=== PATIENT | male | born 1950 | race Caucasian/White ===

== ENCOUNTER → 2023-08-21 10:35 | Outpatient (BNVA) | payer MEDICARE, OTHER, SELFPAY | PROVIDERS: PCP Family Medicine; Referring Provider Family Medicine; Visit Provider Physician Assistant Surgical | DX: J84.9 Interstitial pulmonary disease, unspecified (principal); J45.909 Unspecified asthma, uncomplicated; J96.11 Chronic respiratory failure with hypoxia; G47.33 Obstructive sleep apnea (adult) (pediatric) | CPT/HCPCS: 36415; 99205; G2212 ==

== ENCOUNTER 2023-08-21 12:29 | Outpatient (REF) | payer MEDICARE, OTHER, SELFPAY ==
[2023-08-22 18:38] LABS: Myeloperoxidase Ab IgG <0.2 U; Proteinase 3 Ab (PR3) <0.2 U
== END 2023-08-21 12:30 | disposition home or self-care (01) ==
LOC: LBN 12:29
PROVIDERS: PCP Family Medicine; Visit Provider Physician Assistant Surgical
DX: J84.9 Interstitial pulmonary disease, unspecified (principal)
CPT/HCPCS: 83516

== ENCOUNTER → 2023-09-23 07:48 | Outpatient (BNVA) | payer MEDICARE, OTHER, SELFPAY | PROVIDERS: PCP Family Medicine; Referring Provider Family Medicine; Visit Provider Physician Assistant Surgical | DX: J84.9 Interstitial pulmonary disease, unspecified (principal); J96.11 Chronic respiratory failure with hypoxia; J45.909 Unspecified asthma, uncomplicated; G47.33 Obstructive sleep apnea (adult) (pediatric) | CPT/HCPCS: 36415; 99215; G2212 ==

== ENCOUNTER 2023-09-23 19:26 | Outpatient (REF) | payer MEDICARE, OTHER, SELFPAY ==
[2023-09-23 16:26] LABS: Abs Immature Grans 0.02 10^3/uL (0.0-0.06); Absolute Basophil Count 0.07 10^3/uL (0.0-0.2); Absolute Eosinophil Count 0.12 10^3/uL (0.0-0.7); Absolute Lymphocyte Count 2.61 10^3/uL (1.2-3.4); Absolute Monocyte Count 0.65 10^3/uL (0.1-0.8); Absolute Neutrophil Count 6.03 10^3/uL (1.2-6.7); Basophils % 0.7 %; Eosinophils % 1.3 %; HCT 48.2 % (40.0-50.0); HGB 15.9 g/dL (13.5-17.5); Immature Grans % 0.2 %; Lymphocytes % 27.5 %; MCH 32.9 pg (27.0-33.0); MCV 100 fL (80-95); Monocytes % 6.8 %; Neutrophils % 63.5 %; Platelet Count 294 10^3/uL (130-400); RBC 4.84 10^6/uL (4.36-5.78); RDW 14.4 % (11.8-14.1); RDW-SD 52.4 fL
[2023-09-23 16:36] LABS: Prothrombin Time 10.2 sec (9.1-11.1)
[2023-09-23 16:50] LABS: ALT 36 U/L (16-63); AST 23 U/L (15-37); Albumin 3.8 g/dL (3.4-5.0); Alkaline Phosphatase 121 U/L (46-116); Anion Gap 9.8 mmol/L (3-11); BUN 13 mg/dL (7-18); Bilirubin, Total 0.47 mg/dL (0.2-1.0); CO2 25.2 mmol/L (21.0-32.0); Calcium 9.3 mg/dL (8.5-10.1); Chloride 105 mmol/L (98-107); Estimated GFR 79.97 (mL/min/1.73m2); Glucose 93 mg/dL (74-106); Potassium 4.3 mmol/L (3.5-5.1); Sodium 140 mmol/L (136-145); Total Protein 7.6 g/dL (6.4-8.2)
== END 2023-09-23 19:27 | disposition home or self-care (01) ==
LOC: LBN 19:26
PROVIDERS: PCP Family Medicine; Visit Provider Physician Assistant Surgical
DX: J96.11 Chronic respiratory failure with hypoxia (principal); J45.909 Unspecified asthma, uncomplicated; J84.9 Interstitial pulmonary disease, unspecified
CPT/HCPCS: 80053; 85025; 85610

== ENCOUNTER → 2023-11-26 08:44 | Outpatient (BNVA) | payer MEDICARE, OTHER, SELFPAY | PROVIDERS: PCP Family Medicine; Referring Provider Family Medicine; Visit Provider Physician Assistant Surgical | DX: J84.9 Interstitial pulmonary disease, unspecified (principal); G47.33 Obstructive sleep apnea (adult) (pediatric); J96.11 Chronic respiratory failure with hypoxia; J45.909 Unspecified asthma, uncomplicated | CPT/HCPCS: 36415; 99214 ==

== ENCOUNTER 2023-11-26 20:14 | Outpatient (REF) | payer MEDICARE, OTHER, SELFPAY ==
[2023-11-26 11:42] LABS: Abs Immature Grans 0.03 10^3/uL (0.0-0.06); Absolute Basophil Count 0.07 10^3/uL (0.0-0.2); Absolute Lymphocyte Count 2.21 10^3/uL (1.2-3.4); Absolute Monocyte Count 0.68 10^3/uL (0.1-0.8); Absolute Neutrophil Count 6.34 10^3/uL (1.2-6.7); Basophils % 0.7 %; Eosinophils % 4.1 %; HCT 48.3 % (40.0-50.0); HGB 16.1 g/dL (13.5-17.5); Immature Grans % 0.3 %; Lymphocytes % 22.7 %; MCH 33.1 pg (27.0-33.0); MCHC 33.3 % (32.0-36.0); MCV 99 fL (80-95); MPV 8.8 fL (8.0-11.0); Neutrophils % 65.2 %; Platelet Count 295 10^3/uL (130-400); RBC 4.87 10^6/uL (4.36-5.78); RDW 13.8 % (11.8-14.1); RDW-SD 50.5 fL; WBC 9.73 10^3/uL (4.4-10.8)
[2023-11-26 11:56] LABS: ALT 44 U/L (16-63); AST 32 U/L (15-37); Albumin 3.5 g/dL (3.4-5.0); Alkaline Phosphatase 130 U/L (46-116); Anion Gap 9.5 mmol/L (3-11); BUN 14 mg/dL (7-18); Bilirubin, Total 0.48 mg/dL (0.2-1.0); CO2 26.5 mmol/L (21.0-32.0); CREATININE 0.9 mg/dL (0.70-1.30); Calcium 9.7 mg/dL (8.5-10.1); Chloride 104 mmol/L (98-107); Estimated GFR 90.74 (mL/min/1.73m2); Glucose 116 mg/dL (74-106); Potassium 4.6 mmol/L (3.5-5.1); Sodium 140 mmol/L (136-145); Total Protein 7.6 g/dL (6.4-8.2)
== END 2023-11-26 20:15 | disposition home or self-care (01) ==
LOC: LBN 20:14
PROVIDERS: PCP Family Medicine; Visit Provider Physician Assistant Surgical
DX: J84.9 Interstitial pulmonary disease, unspecified (principal); Z51.81 Encounter for therapeutic drug level monitoring; J45.909 Unspecified asthma, uncomplicated; J96.11 Chronic respiratory failure with hypoxia; G47.33 Obstructive sleep apnea (adult) (pediatric)
CPT/HCPCS: 80053; 85025

== ENCOUNTER 2024-02-10 21:40 | Outpatient (REF) | payer MEDICARE, OTHER, SELFPAY | END 2024-02-10 21:41 | disposition home or self-care (01) | LOC: LBN 21:40 | PROVIDERS: PCP Family Medicine; Visit Provider Physician Assistant Surgical | DX: J84.9 Interstitial pulmonary disease, unspecified (principal); I50.9 Heart failure, unspecified | CPT/HCPCS: 36415; 80053; 83880; 85025 ==

== ENCOUNTER → 2024-02-25 09:03 | Outpatient (BNVA) | payer MEDICARE, OTHER, SELFPAY | PROVIDERS: PCP Family Medicine; Referring Provider Family Medicine; Visit Provider Physician Assistant Surgical | DX: J84.9 Interstitial pulmonary disease, unspecified (principal); J45.909 Unspecified asthma, uncomplicated; J96.11 Chronic respiratory failure with hypoxia; G47.33 Obstructive sleep apnea (adult) (pediatric) | CPT/HCPCS: 99214 ==